=== PATIENT | male | born 1955 | race Caucasian/White ===

== ENCOUNTER 2017-08-07 23:41 | Emergency (ER) | payer OTHER ==
[~2017-08-07] VITALS: Ht 182.9 cm; Wt 149.7 kg
--- NOTE | 2017-08-07 23:53 | ER Report ---
History and Physical Time Seen By MD: 23:55 Hx. of Stated Complaint: PATIENT HAS HEADACHE, COUGH, RUNNY NOSE FOR THE LAST FOUR DAYS. PATIENT HAS TRIED OTC MEDICATIONS BUT THE SYMPTOMS ARE GETTING WORSE AND FEELS WORSE. PATIENT FEELING DIZZY. HPI/ROS CHIEF COMPLAINT: cough, headache, dizziness HISTORY OF PRESENT ILLNESS: This is a 62 year old male. He is a therapist here in town. He has been sick for about 4 days now. Cough and runny nose with congestion. Having some sore throat as well. Tonight with headache. Has tried over the counter medications without relief. He has dizziness and lightheadedness at times. Has been trying to drink plenty of fluids and his appetite is good. Has chest tightness and congestion. Mild nausea. No vomiting. No diarrhea. Normal urination. Some pain in the right side of his neck Allergies: Coded Allergies: naproxen (Verified Allergy, Intermediate, ITCHING, 08/07/17) Home Meds Active Scripts Guaifenesin/Codeine (GUAIFENESIN-CODEINE SYRUP) 5 Ml Syrp, 5 ML PO Q6H Y for COUGH, #120 ML 0 Refills Prov:BOBY CAMP MD 08/08/17 Ketorolac Tromethamine (KETOROLAC TROMETHAMINE) 10 Mg Tab, 10 MG PO Q6H Y for PAIN, #12 TAB 0 Refills Prov:BOBY CAMP MD 08/08/17 Hydrocodone Bit/Acetaminophen (HYDROCODON-ACETAMINOPHEN 5-325) 1 Each Tablet, 1 EACH PO Q4H Y for PAIN, #12 TAB 0 Refills Prov:BOBY CAMP MD 08/08/17 Benzonatate 100 Mg Cap (TESSALON PERLE 100 MG CAP) 100 Mg Capsule, 100 MG PO TID Y for COUGH, #15 CAP 0 Refills Prov:BOBY CAMP MD 08/08/17 Reported Medications Finasteride (FINASTERIDE) 1 Mg Tablet, 1 MG PO QDAY 08/07/17 Omeprazole (OMEPRAZOLE) 20 Mg Capsule.dr, 1 CAP PO QDAY, CAP 08/07/17 Fluoxetine Hcl (PROZAC) 10 Mg Capsule, 10 MG PO QDAY, CAPSULE 08/07/17 Reviewed Nurses Notes: Yes Constitutional Vital Sign - Last 24 Hours 08/07/17 08/08/17 23:49 02:30 Temp 99.6 Pulse 73 85 Resp 16 16 B/P (MAP) 120/79 132/82 (99) Pulse Ox 93 95 O2 Delivery Room Air Physical Exam General Appearance: The patient is alert. He is ill appearing, but Non-toxic in appearance. Eyes: Pupils are equal, round. No pallor, injection or icterus. ENT: Mucous membranes are moist. Normal oral mucosa. Posterior oropharynx with significant post nasal drainage and erythema. Nasal mucosa is erythematous and with significant mucous. Normal tympanic membranes and canals, although with bilateral effusions. Neck: Supple. No anterior tenderness, but has some right paraspinous and trapezius discomfort with palpation. Some bilateral anterior cervical lymphadenopathy. Respiratory: Breathing easily and unlabored. Lungs are clear to auscultation. There are no retractions or accessory muscle use. Cardiovascular: Regular rate and rhythm. No murmurs, gallops or rubs. Normal capillary refill. Gastrointestinal: Abdomen is soft and non tender. Nondistended. Normal active bowel sounds. No costovertebral angle tenderness with percussion. Neurological: Alert and oriented x3. Cranial nerves II through XII show no acute deficits on my exam. No focal neurologic deficits in the extremities. Negative Kernig and Brudzinski signs. Skin: Warm and dry. No rashes. Musculoskeletal: Extremities are nontender. No tenderness in palpation of the cervical, thoracic and lumbar spine. DIFFERENTIAL DIAGNOSIS: After history and physical exam, differential diagnosis was considered for cough, shortness of breath including but not limited to pulmonary infectious process, Influenza or other viral syndrome. Medical Decision Making Data Points Result Diagram: 08/08/17 0037 08/08/17 0037 Laboratory Hematology Test 08/07/17 23:57 08/08/17 00:37 Influenza Virus Type A (PCR) Negative (NEGATIVE) Influenza Virus Type B (PCR) Positive (NEGATIVE) Red Blood Count 5.54 M/uL (4.00-5.60) Mean Corpuscular Volume 84.9 fL (80.0-96.0) Mean Corpuscular Hemoglobin 29.2 pg (26.0-33.0) Mean Corpuscular Hemoglobin Concent 34.4 g/dL (32.0-36.0) Red Cell Distribution Width 13.9 % (11.5-14.5) Mean Platelet Volume 9.2 fL (7.2-11.1) Neutrophils (%) (Auto) 54.0 % (39.4-72.5) Lymphocytes (%) (Auto) 32.8 % (17.6-49.6) Monocytes (%) (Auto) 10.9 % (4.1-12.4) Eosinophils (%) (Auto) 1.6 % (0.4-6.7) Basophils (%) (Auto) 0.7 % (0.3-1.4) Nucleated RBC Relative Count (auto) 0.1 /100WBC Neutrophils # (Auto) 2.6 K/uL (2.0-7.4) Lymphocytes # (Auto) 1.6 K/uL (1.3-3.6) Monocytes # (Auto) 0.5 K/uL (0.3-1.0) Eosinophils # (Auto) 0.1 K/uL (0.0-0.5) Basophils # (Auto) 0.0 K/uL (0.0-0.1) Nucleated RBC Absolute Count (auto) 0.00 K/uL Sodium Level 136 mmol/L (137-145) Potassium Level 4.1 mmol/L (3.5-5.0) Chloride Level 101 mmol/L (98-107) Carbon Dioxide Level 24 mmol/L (22-30) Blood Urea Nitrogen 15 mg/dl (9-21) Creatinine 1.10 mg/dl (0.66-1.25) Glomerular Filtration Rate Calc > 60.0 Random Glucose 102 mg/dl (75-110) Lactate 1.5 mmol/L (0.7-2.1) Calcium Level 8.8 mg/dl (8.4-10.2) Total Bilirubin 0.6 mg/dl (0.2-1.3) Aspartate Amino Transf (AST/SGOT) 27 U/L (0-35) Alanine Aminotransferase (ALT/SGPT) 44 U/L (0-56) Alkaline Phosphatase 56 U/L (0-126) Total Protein 6.4 gm/dl (6.3-8.2) Albumin 3.8 g/dl (3.5-5.0) Chemistry Test 08/07/17 23:57 08/08/17 00:37 Influenza Virus Type A (PCR) Negative (NEGATIVE) Influenza Virus Type B (PCR) Positive (NEGATIVE) White Blood Count 4.8 k/uL (4.5-11.0) Red Blood Count 5.54 M/uL (4.00-5.60) Hemoglobin 16.2 g/dL (14.0-18.0) Hematocrit 47.0 % (42.0-52.0) Mean Corpuscular Volume 84.9 fL (80.0-96.0) Mean Corpuscular Hemoglobin 29.2 pg (26.0-33.0) Mean Corpuscular Hemoglobin Concent 34.4 g/dL (32.0-36.0) Red Cell Distribution Width 13.9 % (11.5-14.5) Platelet Count 139 K/uL (150-450) Mean Platelet Volume 9.2 fL (7.2-11.1) Neutrophils (%) (Auto) 54.0 % (39.4-72.5) Lymphocytes (%) (Auto) 32.8 % (17.6-49.6) Monocytes (%) (Auto) 10.9 % (4.1-12.4) Eosinophils (%) (Auto) 1.6 % (0.4-6.7) Basophils (%) (Auto) 0.7 % (0.3-1.4) Nucleated RBC Relative Count (auto) 0.1 /100WBC Neutrophils # (Auto) 2.6 K/uL (2.0-7.4) Lymphocytes # (Auto) 1.6 K/uL (1.3-3.6) Monocytes # (Auto) 0.5 K/uL (0.3-1.0) Eosinophils # (Auto) 0.1 K/uL (0.0-0.5) Basophils # (Auto) 0.0 K/uL (0.0-0.1) Nucleated RBC Absolute Count (auto) 0.00 K/uL Glomerular Filtration Rate Calc > 60.0 Lactate 1.5 mmol/L (0.7-2.1) Calcium Level 8.8 mg/dl (8.4-10.2) Total Bilirubin 0.6 mg/dl (0.2-1.3) Aspartate Amino Transf (AST/SGOT) 27 U/L (0-35) Alanine Aminotransferase (ALT/SGPT) 44 U/L (0-56) Alkaline Phosphatase 56 U/L (0-126) Total Protein 6.4 gm/dl (6.3-8.2) Albumin 3.8 g/dl (3.5-5.0) EKG/Imaging Imaging CHEST: Indication: Cough and fever. Technique: Frontal and lateral views were obtained. Comparison: None. Skeletal and soft tissue structures: Intact and unremarkable. Heart and mediastinum: Within normal limits. Lung hilliard: Well expanded and clear. No focal or diffuse opacities are identified. Pleural spaces: Unremarkable. Impression: No acute process. Report Dictated By: Ulises Adams MD at 08/08/2017 1:08 AM ED Course/Re-evaluation Clinical Indication for ER IV: Hydration, IV Access ED Course Patient had limited improvement with Morphine and Zofran and a liter of Normal Saline. Labs show positive for INfluenza B. Gave Guaifenesin with Codeine and Toradol. After this a little bit more improvement, but still with the headache. Muscle aches have improved. Not coughing as much. Headache worsens with cough. Gave take home pack of Tessalon Perles and Lortab as well as Toradol and Guaifenesin with Codeine. Decision to Disposition Date: Aug 08, 2017 Decision to Disposition Time: 02:20 Depart Departure Latest Vital Signs Vital Signs Date Time Temp Pulse Resp B/P (MAP) Pulse Ox O2 Delivery O2 Flow Rate FiO2 08/08/17 02:30 85 16 132/82 (99) 95 Room Air 08/07/17 23:49 99.6 Impression: Primary Impression: Influenza B Condition: Improved Disposition: HOME OR SELF-CARE New Scripts Guaifenesin/Codeine (GUAIFENESIN-CODEINE SYRUP) 5 Ml Syrp 5 ML PO Q6H Y for COUGH, #120 ML 0 Refills Prov: BOBY CAMP MD 08/08/17 Ketorolac Tromethamine (KETOROLAC TROMETHAMINE) 10 Mg Tab 10 MG PO Q6H Y for PAIN, #12 TAB 0 Refills Prov: BOBY CAMP MD 08/08/17 Hydrocodone Bit/Acetaminophen (HYDROCODON-ACETAMINOPHEN 5-325) 1 Each Tablet 1 EACH PO Q4H Y for PAIN, #12 TAB 0 Refills Prov: BOBY CAMP MD 08/08/17 Benzonatate 100 Mg Cap (TESSALON PERLE 100 MG CAP) 100 Mg Capsule 100 MG PO TID Y for COUGH, #15 CAP 0 Refills Prov: BOBY CAMP MD 08/08/17 Patient Instructions: Influenza (ED) Additional Instructions: Rest and increase fluid intake over the next few days. Take Toradol 10mg, one every 6 hours as needed for pain. Take Lortab 5/325, one every 4hours as needed for pain. Take Benzonatate 100mg gel capsules, one every 8 hours as needed for cough. Take Guaifenesin with Codeine, one teaspoon every 4 hours as needed for cough. BOBY CAMP MD Aug 07, 2017 23:53
[2017-08-07] MEDS ORDERED: FINA1TAB7 PO (23:56)
[2017-08-07] MEDS ORDERED: OMEP-125 PO (23:56)
[2017-08-07] MEDS ORDERED: FLUO-201 PO (23:56)
[2017-08-08] MEDS ORDERED: ONDANSETRON 4 MG/2 ML VIAL IVP ONE (00:15)
[2017-08-08] MEDS ORDERED: MORPHINE 2 MG/ML SYR IVP ONE (00:15)
[2017-08-08] MEDS ORDERED: NS(*) 0.9% 1000 ML BAG 1,000 ML IV ONE (00:15)
[2017-08-08 00:46] LABS: PLATELET COUNT, AUTOMATED 139 K/uL (150-450)
--- NOTE | 2017-08-08 01:15 | RADIOLOGY IMAGING REPORT ---
FACILITY: PATIENT NAME: Antwan Farah : 1955 MR: [id number] V: [id number] EXAM DATE: ORDERING PHYSICIAN: BOBY CAMP TECHNOLOGIST: Location: [facility] [place] Patient: Antwan Farah : 1955 Visit/Account:[id number] Date of Sevice: 08/08/2017 CHEST: Indication: Cough and fever. Technique: Frontal and lateral views were obtained. Comparison: None. Skeletal and soft tissue structures: Intact and unremarkable. Heart and mediastinum: Within normal limits. Lung hilliard: Well expanded and clear. No focal or diffuse opacities are identified. Pleural spaces: Unremarkable. Impression: No acute process. Report Dictated By: Ulises Adams MD at 08/08/2017 1:08 AM Report E-Signed By: Ulises Adams MD at 08/08/2017 1:09 AM [id number]
[2017-08-08] MEDS ORDERED: guaiFENesin/CODEINE 5 ML UDBTL PO ONE ×2 (01:30→02:20)
[2017-08-08] MEDS ORDERED: KETOROLAC 30 MG/ML VIAL IVP ONE (01:30)
[2017-08-08] MEDS ORDERED: KETOROLAC TROM 10 MG TAB TH PO ONE (02:20)
[2017-08-08] MEDS ORDERED: BENZONATATE 100 MG CAP PO ONE (02:20)
[2017-08-08] MEDS ORDERED: ACET/HYDROC 5/325MG TH ER ONLY 2 TAB/BOTTLE PO ONE (02:20)
[2017-08-08] MEDS ORDERED: KET10 PO (02:22)
[2017-08-08] MEDS ORDERED: BENZ100C4 PO (02:22)
[2017-08-08] MEDS ORDERED: LOR5/325 PO (02:22)
[2017-08-08] MEDS ORDERED: ROBC PO (02:22)
[2017-08-08 02:30] VITALS: BP 132/82
== END 2017-08-08 02:31 | disposition home or self-care (01) ==
LOC: ER 23:45
DX: J11.1 Influenza due to unidentified influenza virus with other respiratory manifestations (principal)
CPT/HCPCS: 71046; 83605; 85025; 87502; 96361; 96374; 96375; 99284; J1885; J2270; J2405; J7030; 82040; 82247; 82310; 82374; 82435; 82565; 82947; 84075; 84132; 84155; 84295; 84450; 84460; 84520

== ENCOUNTER 2018-09-09 01:42 | Day surgery (SDC) | payer OTHER ==
[~2018-09-09] VITALS: Ht 182.9 cm; Wt 137.9 kg
[2018-09-09] VITALS (7 sets, daily range): BP systolic 104–126; BP diastolic 64–87
[~2018-09-09 01:42] MED LIST: BENZ100C4 PO; FINA1TAB7 PO; FLUO-201 PO; FLUO-202 PO; GOLYTE PO; KET10 PO; LIDOCAINE/SOD BICARB 8.4% SYR ID ONE; LOR5/325 PO; NORMOSOL R SOLN(*) 1000 ML BAG 1,000 ML IV PRN; OMEP-125 PO; ROBC PO
[2018-09-09] MEDS ORDERED: PROPOFOL EMUL(*) 10MG/ML 20 ML 20 ML ONE ×4 (07:10→11:43)
[2018-09-09] MEDS ORDERED: LIDOCAINE/SOD BICARB 8.4% SYR ID ONE (10:05)
[2018-09-09] MEDS ORDERED: NORMOSOL R SOLN(*) 1000 ML BAG 1,000 ML IV PRN (10:05)
--- NOTE | 2018-09-09 12:06 | Short(Outpt) Discharge Summary ---
Discharge Summary Reason for Hosp/Final Diag: (1) Colon cancer screening Status: Chronic Hospital Course & Plan: EGD with biopsies and colonoscopy with polypectomy x1 completed without problems. (2) GERD (gastroesophageal reflux disease) Status: Chronic Departure Discharge to: Home, Self Care Discharge Instructions Home Meds Active Scripts Peg/Electrolytes (GOLYTELY SOLUTION) 4,000 Ml Soln, 4000 ML PO ONCE, #1 GAL 0 Refills Prov:KRISTINA MORATAYA MD 08/10/18 Reported Medications Fluoxetine Hcl (PROZAC) 20 Mg Capsule, 1 CAP PO QDAY, CAPSULE 04/28/18 Finasteride (FINASTERIDE) 1 Mg Tablet, 1 MG PO QDAY 08/07/17 Omeprazole (OMEPRAZOLE) 20 Mg Capsule.dr, 1 CAP PO QDAY, CAP 08/07/17 Diet: Regular Activity: As Tolerated Special Instructions: Your upper endoscopy and colonoscopy were completed without problems and your prep was excellent (Good Job!!). 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 I removed several benign appearing polyps from your stomach and they were sent to pathology as well. I removed a single small polyp from your colon and it was sent to pathology. Your colon was otherwise normal. My office will call you in the next week or two to let you know what all the biopsies reveal and what the polyps are and when your next upper endoscopy and colonoscopy should be. If you don't have Mcqueen's you won't need to continue having upper endoscopies but if you have Mcqueen's then we will need to look again in 2 years. If the polyp is completely benign then your next colonoscopy will be in 10 years but if it's precancerous then your next colonoscopy should be in 5 years; we'll let you know definitively when we call you with results. Problem Qualifiers (1) GERD (gastroesophageal reflux disease): Esophagitis presence: without esophagitis Qualified Codes: K21.9 - Gastro- esophageal reflux disease without esophagitis KRISTINA MORATAYA MD Sep 09, 2018 12:06
== END 2018-09-09 12:50 | disposition home or self-care (01) ==
LOC: OR 01:42
PROVIDERS: ATTEND Surgery
DX: Z12.11 Encounter for screening for malignant neoplasm of colon (principal); K63.5 Polyp of colon; Z87.19 Personal history of other diseases of the digestive system; K31.7 Polyp of stomach and duodenum
CPT/HCPCS: 00813; 43251; 45385; 88305; 88344; J2704

== ENCOUNTER → 2018-12-13 | Outpatient (REF) | payer OTHER ==
[~2018-12-13] MED LIST changes: -LIDOCAINE/SOD BICARB 8.4% SYR ID ONE; -NORMOSOL R SOLN(*) 1000 ML BAG 1,000 ML IV PRN
== END ==
LOC: ZZSENDIN 12:00
PROVIDERS: ATTEND Family Medicine
DX: C44.311 Basal cell carcinoma of skin of nose (principal)
CPT/HCPCS: 88305